=== PATIENT | female | born 1985 | race Caucasian/White ===

== ENCOUNTER 2016-10-12 02:07 | Inpatient (IN) | payer OTHER ==
[2016-10-12] MEDS ORDERED: Ondansetron 4 MG/2 ML SDV IVPUSH PRN ×2 (09:05→11:24)
[2016-10-12] MEDS ORDERED: Sodium Chloride 0.9% 10 ML Syringe FLUSH PRN (09:05)
[2016-10-12] MEDS ORDERED: Nalbuphine 20 MG/1 ML Amp IVPUSH PRN (09:05)
--- NOTE | 2016-10-12 09:08 | PCM.LDHP ---
L&D History of Present Illness - General Date of Service: 10/12/16 Admit Problem/Dx: Patient Status Order with Admit Dx/Problem 10/12/16 09:05 Patient Status [ADT] Routine Admission Diagnosis/Problem Admission Diagnosis/Problem Normal Source of Information: Patient History Limitations: Reports: No Limitations - History of Present Illness Introduction:: Patient is a 31-year-old 0-1 at 37-6/7 weeks who presents today for induction of labor for concerns of intrauterine growth restriction. Patient has a known bicornuate uterus and due to this history had serial ultrasounds in her . An ultrasound done on 08/31 at 32 weeks gestation showed baby to overall be at the 6th percentile. Follow-up ultrasound did show improvement and overall EFW, but continued bleeding had measurements. She's had weekly fluid and Doppler studies which of all been normal. Her has otherwise been uncomplicated. She is doing well today. Noting good movement. No other specific concerns. - Related Data Allergies/Adverse Reactions: Allergies Allergy/AdvReac Type Severity Reaction Status Date / Time clindamycin Allergy Hives Verified 08/31/16 17:44 Home Medications: Home Meds Ferrous Sulfate [Slow Fe] 142 mg PO DAILY 08/31/16 [History] Pnv with Ca,No.72/Iron/Fa [ Vitamin Plus Low Iron] 1 tab PO DAILY [History] Past Medical History [employer] History: Reports: , Spontaneous : 4 Para: 1 LMP (Approximate): - Past Surgical History Female Surgical History: Reports: D&C (x2) Musculoskeletal Surgical History: Reports: Other (See Below) Other Musculoskeletal Surgeries/Procedures:: Fracture surgery Social & Family History - Tobacco Use Smoking Status *Q: Never Smoker - Alcohol Use Alcohol Use History: No - Recreational Drug Use Recreational Drug Use: No H&P Review of Systems - Review of Systems: Review Of Systems: See Below General: Reports: No Symptoms Pulmonary: Reports: No Symptoms Cardiovascular: Reports: No Symptoms Gastrointestinal: Reports: No Symptoms Genitourinary: Reports: No Symptoms Musculoskeletal: Reports: No Symptoms Psychiatric: Reports: No Symptoms L&D Exam - Exam Exam: See Below - Vital Signs Weight: 79.061 kg - OB Specific Contraction Intensity: Irritability Movement: Active Heart Tones: Present Heart Tones per Min: 130 Heart Rate (FHR) Variability: Moderate (6-25 bmp) Presentation: Vertex - Joel Score Joel Score Cervix Position: Posterior Joel Score Consistency: Soft Joel Score Effacement: 31-50% Joel Score Dilation: 1-2 cm Joel Score Infant's Station: -2 Joel Score Total: 5 - Exam General: Alert, Oriented, Cooperative Lungs: Clear to Auscultation, Normal Respiratory Effort Cardiovascular: Regular Rate, Regular Rhythm GI/Abdominal Exam: Soft, Non-Tender Genitourinary: Normal external exam Extremities: Normal Inspection Skin: Warm, Dry, Intact - Patient Data Result Diagrams: 10/12/16 09:30 - Problem List (1) 38 weeks gestation of SNOMED Code(s): 35015125 ICD Code: Z3A.38 - 38 WEEKS GESTATION OF Status: Acute Current Visit: Yes (2) 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, antepartum SNOMED Code(s): 565962687 ICD Code: O34.03 - MATERNAL CARE FOR UNSP CONGEN MALFORM OF UTERUS, THIRD TRI ; Q51.3 - BICORNATE UTERUS Status: Acute Current Visit: Yes (3) IUGR (intrauterine growth restriction) SNOMED Code(s): 30120279 ICD Code: HPP3897 - Status: Acute Current Visit: Yes (4) Rubella non-immune status, antepartum SNOMED Code(s): 464665782 ICD Code: O99.89 - OTH DISEASES AND CONDITIONS COMPL PREG/CHLDBRTH; Z28.3 - UNDERIMMUNIZATION STATUS Status: Acute Current Visit: Yes Problem List Initiated/Reviewed/Updated: Yes Orders Last 24hrs: Active Orders 24 hr Category Date Time Status Patient Status [ADT] Routine ADT 10/12/16 09:05 Ordered Activity as Tolerated [RC] PFP Care 10/12/16 09:05 Ordered Communication Order [RC] ASDIRECTED Care 10/12/16 09:05 Ordered Heart Tones [RC] ASDIRECTED Care 10/12/16 09:06 Ordered Notify Provider [RC] PFP Care 10/12/16 09:05 Ordered Notify Provider [RC] PRN Care 10/12/16 09:05 Ordered Peripheral IV Care [RC] . DIRECTED Care 10/12/16 09:06 Ordered Vital Signs [RC] PER UNIT ROUTINE Care 10/12/16 09:05 Ordered CBC W/O DIFF,HEMOGRAM [HEME] Routine Lab 10/12/16 09:05 Ordered TYPE AND SCREEN [BBK] Routine Lab 10/12/16 09:05 Ordered Lactated Ringers [Ringers, Lactated] 1,000 ml Med 10/12/16 09:15 Ordered IV ASDIRECTED Nalbuphine [Nubain] Med 10/12/16 09:05 Ordered 10 mg IVPUSH Q2H PRN Ondansetron [Zofran] Med 10/12/16 09:05 Ordered 4 mg IVPUSH Q4H PRN Oxytocin/Lactated Ringers [Pitocin in LR 10 Units/1,000 Med 10/12/16 09:15 Ordered ML] 10 unit in 1,000 ml IV .CONTINUOUS Oxytocin/Lactated Ringers [Pitocin in LR 10 Units/1,000 Med 10/12/16 09:15 Ordered ML] 10 unit in 1,000 ml IV TITRATE Sodium Chloride 0.9% [Saline Flush] Med 10/12/16 09:05 Ordered 10 ml FLUSH ASDIRECTED PRN Electronic Heart Tones Ext w TOCO [WOMSER] Oth 10/12/16 09:05 Ordered Routine Electronic Heart Tones Internal [WOMSER] Per Unit Oth 10/12/16 09:05 Ordered Routine Peripheral IV Insertion Adult [OM.PC] Routine Oth 10/12/16 09:05 Ordered Resuscitation Status Routine Resus Stat 10/12/16 09:05 Ordered Assessment/Plan Comment:: 31-year-old at 37-6/7 weeks gestation who presents for induction of labor * CBC and type and screen * GBS negative, no need for antibiotics * Pitocin for induction with eventual AROM when able * Pain management per patient preference * Anticipate * MMR prior to discharge
[2016-10-12] MEDS ORDERED: Oxytocin/Lactated Ringers 10 UNIT/1,000 ML BAG IV SCH (09:15)
[2016-10-12] MEDS: Oxytocin/Lactated Ringers 10 UNIT/1,000 ML BAG IV SCH (10:06)
[2016-10-12] MEDS: Lactated Ringers 1,000 ML IV SCH ×5 (10:06→23:35)
[2016-10-12] MEDS ORDERED: fentaNYL 100 MCG/2 ML SDV EPIDUR PRN (11:24)
[2016-10-12] MEDS ORDERED: ePHEDrine 50 MG/ML SDV IVPUSH PRN (11:24)
--- NOTE | 2016-10-12 11:28 | PCM.PREANE ---
Preanesthetic Assessment - Anesthesia/Transfusion/Family Hx Anesthesia History: Prior Anesthesia Reaction Type of Anesthesia Reaction: Excessive Nausea/Vomiting Family History of Anesthesia Reaction: No Transfusion History: No Prior Transfusion(s) Intubation History: Unknown - Review of Systems General: No Symptoms Pulmonary: No Symptoms Cardiovascular: No Symptoms Gastrointestinal: No Symptoms (gerd), Constipation Neurological: No Symptoms Other: Reports: None, Easy Bruising - Physical Assessment NPO Status Date: 10/12/16 NPO Status Time: 11:15 Pulse: 81 O2 Sat by Pulse Oximetry: 99 Respiratory Rate: 18 Blood Pressure: 126/78 Temperature: 36.9 C Vital Signs: Last Vital Signs Temp 36.9 C 10/12/16 09:05 Pulse 81 10/12/16 09:05 Resp 18 10/12/16 09:05 BP 126/78 10/12/16 09:05 Pulse Ox Height: 1.64 m Weight: 83.489 kg ASA Class: 2 Mental Status: Alert & Oriented x3 Airway Class: Mallampati = 2 Dentition: Reports: Normal Dentition, Broken Tooth/Teeth (upper left), Caries Thyro-Mental Finger Breadths: 3 Mouth Opening Finger Breadths: 3 ROM/Head Extension: Full Lungs: Clear to Auscultation, Normal Respiratory Effort Cardiovascular: Regular Rate, Regular Rhythm, No Murmurs - Lab Values: Laboratory Last Values WBC 13.13 K/mm3 (3.98-10.04) H 10/12/16 09:30 RBC 3.69 M/mm3 (3.98-5.22) L 10/12/16 09:30 Hgb 11.6 gm/L (11.2-15.7) 10/12/16 09:30 Hct 34.9 % (34.1-44.9) 10/12/16 09:30 MCV 94.6 fl (79.4-94.8) 10/12/16 09:30 MCH 31.4 pg (25.6-32.2) 10/12/16 09:30 MCHC 33.2 g/dl (32.2-35.5) 10/12/16 09:30 RDW Std Deviation 45.6 fL (36.4-46.3) 10/12/16 09:30 Plt Count 201 K/mm3 (182-369) 10/12/16 09:30 MPV 10.0 fl (9.4-12.3) 10/12/16 09:30 Above labs reviewed and noted. 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: Other OB/BYN History: bicornuate uterus , d&c - Past Surgical History Female Surgical History: Reports: D&C - SUBSTANCE USE Smoking Status *Q: Never Smoker Second Hand Smoke Exposure: No Recreational Drug Use History: No - HOME MEDS Home Medications: Home Meds Ferrous Sulfate [Slow Fe] 142 mg PO DAILY 08/31/16 [History] Pnv with Ca,No.72/Iron/Fa [ Vitamin Plus Low Iron] 1 tab PO DAILY [History] - CURRENT (IN HOUSE) MEDS Current Meds: Current Medications Lactated Ringer's (Ringers, Lactated) 1,000 mls @ 40 mls/hr IV ASDIRECTED ARSH Last Admin: 10/12/16 10:06 Dose: 40 mls/hr Oxytocin/Lactated Ringer's (Pitocin In Lr 10 Units/1,000 Ml) 10 unit in 1,000 mls @ 500 mls/hr IV .CONTINUOUS ARSH Oxytocin/Lactated Ringer's (Pitocin In Lr 10 Units/1,000 Ml) 10 unit in 1,000 mls @ 12 mls/hr IV TITRATE ARSH; 2 MUNITS/MIN PRN Reason: Protocol Last Admin: 10/12/16 10:06 Dose: 2 munits/min, 12 mls/hr Nalbuphine HCl (Nubain) 10 mg IVPUSH Q2H PRN PRN Reason: Pain (moderate 4-6) Ondansetron HCl (Zofran) 4 mg IVPUSH Q4H PRN PRN Reason: Nausea/Vomiting Sodium Chloride (Saline Flush) 10 ml FLUSH ASDIRECTED PRN PRN Reason: Keep Vein Open
[2016-10-12] MEDS ORDERED: Bupivacaine/fentaNYL/NS 100 ML Bag EPIDUR SCH (11:30)
[2016-10-12] MEDS ORDERED: Bupivacaine 0.25% 10 ML SDV ONE (12:30)
--- NOTE | 2016-10-12 17:08 | PCM.PNLD ---
Labor Progress Note - VS & Meds Vital Signs: Last Vital Signs Temp 36.9 C 10/12/16 11:49 Pulse 81 10/12/16 11:49 Resp 18 10/12/16 11:49 BP 126/78 10/12/16 11:49 Pulse Ox 99 10/12/16 11:49 Active Medications: Current Medications Ephedrine Sulfate (Ephedrine Sulfate) 5 mg IVPUSH ASDIRECTED PRN PRN Reason: Hypotension Fentanyl (Sublimaze) 100 mcg EPIDUR Q3H PRN PRN Reason: Pain Fentanyl/Bupivacaine HCl (Fentanyl/Bupivacaine/Ns 2 Mcg-0.125% 100 Ml) 100 ml EPIDUR ASDIRECTED ARSH Lactated Ringer's (Ringers, Lactated) 1,000 mls @ 40 mls/hr IV ASDIRECTED ARSH Last Admin: 10/12/16 10:06 Dose: 40 mls/hr Oxytocin/Lactated Ringer's (Pitocin In Lr 10 Units/1,000 Ml) 10 unit in 1,000 mls @ 500 mls/hr IV .CONTINUOUS ARSH Oxytocin/Lactated Ringer's (Pitocin In Lr 10 Units/1,000 Ml) 10 unit in 1,000 mls @ 12 mls/hr IV TITRATE ARSH; 2 MUNITS/MIN PRN Reason: Protocol Last Titration: 10/12/16 16:04 Dose: 12 munits/min, 72 mls/hr Nalbuphine HCl (Nubain) 10 mg IVPUSH Q2H PRN PRN Reason: Pain (moderate 4-6) Ondansetron HCl (Zofran) 4 mg IVPUSH Q4H PRN PRN Reason: Nausea/Vomiting Ondansetron HCl (Zofran) 4 mg IVPUSH ONETIME PRN PRN Reason: Nausea/Vomiting Sodium Chloride (Saline Flush) 10 ml FLUSH ASDIRECTED PRN PRN Reason: Keep Vein Open - Uterine Contractions Uterine Monitoring Mode: External [place] Contraction Intensity: Moderate Uterine Resting Tone: Soft - Monitoring Monitor Mode: External Ultrasound Heart Rate (FHR) Baseline: 130 Heart Rate (FHR) Variability: Moderate (6-25 bmp) Accelerations: Present, 15x15 Decelerations: None Strip Review: Category I - Vaginal Exam Dilation (cm): 3 Effacement (Percent): 50 Station: -2 Cervical Position: Posterior - Labor Progress (Free Text) Labor Progress: Patinet doing well. On 12 of pitocin. Rates contractions as moderate. Attempt made at AROM. No gross loss of fluid, but thought to be small amount of clear fluid. Second attempt made with mostly blood noted from cervical exam check. Will continue with pitocin. Reassess in a few hours
--- NOTE | 2016-10-12 19:29 | PCM.PNLD ---
Labor Progress Note - VS & Meds Vital Signs: Last Vital Signs Temp 36.9 C 10/12/16 11:49 Pulse 81 10/12/16 11:49 Resp 18 10/12/16 11:49 BP 126/78 10/12/16 11:49 Pulse Ox 99 10/12/16 11:49 Active Medications: Current Medications Ephedrine Sulfate (Ephedrine Sulfate) 5 mg IVPUSH ASDIRECTED PRN PRN Reason: Hypotension Fentanyl (Sublimaze) 100 mcg EPIDUR Q3H PRN PRN Reason: Pain Last Admin: 10/12/16 18:35 Dose: 100 mcg Fentanyl/Bupivacaine HCl (Fentanyl/Bupivacaine/Ns 2 Mcg-0.125% 100 Ml) 100 ml EPIDUR ASDIRECTED ARSH Last Admin: 10/12/16 18:35 Dose: 100 ml Lactated Ringer's (Ringers, Lactated) 1,000 mls @ 40 mls/hr IV ASDIRECTED ARSH Last Admin: 10/12/16 18:37 Dose: 999 mls/hr Oxytocin/Lactated Ringer's (Pitocin In Lr 10 Units/1,000 Ml) 10 unit in 1,000 mls @ 500 mls/hr IV .CONTINUOUS ARSH Oxytocin/Lactated Ringer's (Pitocin In Lr 10 Units/1,000 Ml) 10 unit in 1,000 mls @ 12 mls/hr IV TITRATE ARSH; 2 MUNITS/MIN PRN Reason: Protocol Last Titration: 10/12/16 16:04 Dose: 12 munits/min, 72 mls/hr Nalbuphine HCl (Nubain) 10 mg IVPUSH Q2H PRN PRN Reason: Pain (moderate 4-6) Ondansetron HCl (Zofran) 4 mg IVPUSH Q4H PRN PRN Reason: Nausea/Vomiting Ondansetron HCl (Zofran) 4 mg IVPUSH ONETIME PRN PRN Reason: Nausea/Vomiting Sodium Chloride (Saline Flush) 10 ml FLUSH ASDIRECTED PRN PRN Reason: Keep Vein Open - Uterine Contractions Uterine Monitoring Mode: External [place] Contraction Intensity: Moderate to Strong Uterine Resting Tone: Soft - Monitoring Monitor Mode: External Ultrasound Heart Rate (FHR) Baseline: 125 Heart Rate (FHR) Variability: Moderate (6-25 bmp) Accelerations: Present, 15x15 Decelerations: None Strip Review: Category I - Vaginal Exam Dilation (cm): 3 Effacement (Percent): 50 Station: -2 Cervical Position: Posterior - Labor Progress (Free Text) Labor Progress: Patient doing well. Comfortable with epidural. Pitocin at 12. Obvious clear fluid now present. Continue present management
[2016-10-12] MEDS ORDERED: diphenhydrAMINE 50 MG/ML SDV IVPUSH PRN (20:34)
--- NOTE | 2016-10-12 20:37 | PCM.SN ---
- Free Text/Narrative Note: : Anesthesia notified of patient c/o breasts feeling numb. Upon arrival patient is sitting in high kasper's position with T4 level noted. Epidural infusion decreased from 10 to 7ml's/hr. Patient also c/o some pruitis with no rash or erythema noted. Benadryl PRN order placed. Patient educated to keep HOB up and to notify nurse with any changes.
[2016-10-13] MEDS: Oxytocin/Lactated Ringers 10 UNIT/1,000 ML BAG IV SCH (00:42)
[2016-10-13] MEDS ORDERED: Benzocaine/Menthol 20%-0.5% Spray 56 GM Canister TOP PRN (02:30)
[2016-10-13] MEDS ORDERED: Docusate Sodium 100 MG Cap PO PRN (02:30)
[2016-10-13] MEDS ORDERED: Lanolin 100% Cream 7 GM Tube TOP PRN (02:30)
[2016-10-13] MEDS ORDERED: Acetaminophen 325 MG Tab PO PRN (02:30)
[2016-10-13] MEDS ORDERED: Witch Hazel Medicated Pads 100/Jar TOP PRN (02:30)
--- NOTE | 2016-10-13 02:30 | PCM.DEL ---
L & D Note - General Info Date of Service: 10/13/16 - Delivery Note Labor: Induced by ARM, Induced by Oxytocin Delivery Outcome: Livebirth Infant Delivery Method: Spontaneous Vaginal Delivery Infant Delivery Mode: Spontaneous Presentation: Right Occiput Anterior (JOSETTE) Nuchal Cord: None Anesthesia Type: Epidural Amniotic Fluid Description: Clear Episiotomy Type: None Laceration: None Placenta: Intact, Spontaneous Cord: 3 Vessels Estimated Blood Loss: 400 Resuscitation Needed: Yes : Bulb Syringe, Stimulated, Warmed, [place] Used, Warmer Used Score 1 min: 8 Score 5 min: 9 Delivery Comments (Free Text/Narrative):: Patient found to be complete and began pushing with maternal pushing effort head delivered from an JOSETTE presentation. No nuchal cord present. With gentle downward traction the shoulders and body delivered. placed on maternal abdomen. Cord clamped and cut. Cord blood obtained. Placenta allowed time to separate and spontaneously expelled. Inspection of the perineum showed no lacerations. - Patient Data Vitals - Most Recent: Last Vital Signs Temp 36.9 C 10/12/16 11:49 Pulse 81 10/12/16 11:49 Resp 18 10/12/16 11:49 BP 126/78 10/12/16 11:49 Pulse Ox 99 10/12/16 11:49 Weight - Most Recent: 79.061 kg I&O - Last 24 Hours: Intake & Output 10/12/16 10/12/16 10/13/16 14:59 22:59 06:59 Intake Total 3620 1500 Balance 3620 1500 Lab Results Last 24 Hours: Laboratory Results - last 24 hr 10/12/16 10/12/16 Range/Units 09:30 09:30 WBC 13.13 H (3.98-10.04) K/mm3 RBC 3.69 L (3.98-5.22) M/mm3 Hgb 11.6 (11.2-15.7) gm/L Hct 34.9 (34.1-44.9) % MCV 94.6 (79.4-94.8) fl MCH 31.4 (25.6-32.2) pg MCHC 33.2 (32.2-35.5) g/dl RDW Std Deviation 45.6 (36.4-46.3) fL Plt Count 201 (182-369) K/mm3 MPV 10.0 (9.4-12.3) fl Blood Type A POSITIVE Gel Antibody Screen Negative Med Orders - Current: Current Medications Diphenhydramine HCl (Benadryl) 25 mg IVPUSH Q6H PRN PRN Reason: pruritis Last Admin: 10/12/16 21:53 Dose: 25 mg Ephedrine Sulfate (Ephedrine Sulfate) 5 mg IVPUSH ASDIRECTED PRN PRN Reason: Hypotension Fentanyl (Sublimaze) 100 mcg EPIDUR Q3H PRN PRN Reason: Pain Last Admin: 10/12/16 18:35 Dose: 100 mcg Fentanyl/Bupivacaine HCl (Fentanyl/Bupivacaine/Ns 2 Mcg-0.125% 100 Ml) 100 ml EPIDUR ASDIRECTED ARSH Last Admin: 10/12/16 18:35 Dose: 100 ml Lactated Ringer's (Ringers, Lactated) 1,000 mls @ 40 mls/hr IV ASDIRECTED ARSH Last Admin: 10/12/16 23:35 Dose: 999 mls/hr Oxytocin/Lactated Ringer's (Pitocin In Lr 10 Units/1,000 Ml) 10 unit in 1,000 mls @ 500 mls/hr IV .CONTINUOUS ARSH Oxytocin/Lactated Ringer's (Pitocin In Lr 10 Units/1,000 Ml) 10 unit in 1,000 mls @ 12 mls/hr IV TITRATE ARSH; 2 MUNITS/MIN PRN Reason: Protocol Last Admin: 10/13/16 00:42 Dose: 12 munits/min, 72 mls/hr Nalbuphine HCl (Nubain) 10 mg IVPUSH Q2H PRN PRN Reason: Pain (moderate 4-6) Ondansetron HCl (Zofran) 4 mg IVPUSH Q4H PRN PRN Reason: Nausea/Vomiting Ondansetron HCl (Zofran) 4 mg IVPUSH ONETIME PRN PRN Reason: Nausea/Vomiting Sodium Chloride (Saline Flush) 10 ml FLUSH ASDIRECTED PRN PRN Reason: Keep Vein Open - Problem List & Annotations (1) 38 weeks gestation of SNOMED Code(s): 79410098 Code(s): Z3A.38 - 38 WEEKS GESTATION OF Status: Acute Current Visit: Yes (2) 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, antepartum SNOMED Code(s): 196903562 Code(s): O34.03 - MATERNAL CARE FOR UNSP CONGEN MALFORM OF UTERUS, THIRD TRI ; Q51.3 - BICORNATE UTERUS Status: Acute Current Visit: Yes (3) IUGR (intrauterine growth restriction) SNOMED Code(s): 97736621 Code(s): RDH8348 - Status: Acute Current Visit: Yes (4) Rubella non-immune status, antepartum SNOMED Code(s): 229626804 Code(s): O99.89 - OTH DISEASES AND CONDITIONS COMPL PREG/CHLDBRTH; Z28.3 - UNDERIMMUNIZATION STATUS Status: Acute Current Visit: Yes (5) Vaginal delivery SNOMED Code(s): 691963779 Code(s): O80 - ENCOUNTER FOR FULL-TERM UNCOMPLICATED DELIVERY Status: Acute Current Visit: Yes - Problem List Review Problem List Initiated/Reviewed/Updated: Yes - My Orders Last 24 Hours: My Active Orders 10/12/16 09:05 Patient Status [ADT] Routine Activity as Tolerated [RC] PFP Communication Order [RC] ASDIRECTED Notify Provider [RC] PFP Notify Provider [RC] PRN Vital Signs [RC] PER UNIT ROUTINE Nalbuphine [Nubain] 10 mg IVPUSH Q2H PRN Ondansetron [Zofran] 4 mg IVPUSH Q4H PRN Sodium Chloride 0.9% [Saline Flush] 10 ml FLUSH ASDIRECTED PRN Electronic Heart Tones Ext w TOCO [WOMSER] Routine Electronic Heart Tones Internal [WOMSER] Per Unit Routine Peripheral IV Insertion Adult [OM.PC] Routine Resuscitation Status Routine 10/12/16 09:06 Heart Tones [RC] ASDIRECTED Peripheral IV Care [RC] . DIRECTED 10/12/16 09:15 Lactated Ringers [Ringers, Lactated] 1,000 ml IV ASDIRECTED Oxytocin/Lactated Ringers [Pitocin in LR 10 Units/1,000 ML] 10 unit in 1,000 ml IV .CONTINUOUS Oxytocin/Lactated Ringers [Pitocin in LR 10 Units/1,000 ML] 10 unit in 1,000 ml IV TITRATE 10/12/16 Breakfast Regular Diet [DIET] - Assessment Assessment:: 31-year-old G4 now P2022 PPD#0 from at 38 0/7 wks - Plan Plan:: * Routine cares * Encourage breast feeding * MMR prior to discharge
[2016-10-13] MEDS: Ibuprofen 600 MG Tab PO PRN ×3 (03:27→18:34)
[2016-10-13] MEDS ORDERED: Bupivacaine 0.25% 10 ML SDV ONE (12:30)
[2016-10-14] MEDS: Ibuprofen 600 MG Tab PO PRN ×3 (00:29→12:21)
[2016-10-14] MEDS ORDERED: Measles, Mumps & Rubella Vaccine 0.5 ML SDV SUBCUT ONE (09:48)
--- NOTE | 2016-10-14 11:12 | PCM.DCSUM1 ---
Discharge Summary - Hospital Course Free Text/Narrative:: [facility] LIVE L/D Delivery Note Patient Name: CLAUDIO COLE Date of : 85 Patient Status: Inpatient Attending Provider: Carlita Denney Date: 10/13/16 02:30 Initialization Date: 10/13/16 02:30 L & D Note - General Info Date of Service: 10/13/16 - Delivery Note Labor: Induced by ARM, Induced by Oxytocin Delivery Outcome: Livebirth Delivery Method: Spontaneous Vaginal Delivery Delivery Mode: Spontaneous Presentation: Right Occiput Anterior (JOSETTE) Nuchal Cord: None Anesthesia Type: Epidural Amniotic Fluid Description: Clear Episiotomy Type: None Laceration: None Placenta: Intact, Spontaneous Cord: 3 Vessels Estimated Blood Loss: 400 Resuscitation Needed: Yes : Bulb Syringe, Stimulated, Warmed, Thida Used, Warmer Used Score 1 min: 8 Score 5 min: 9 Delivery Comments (Free Text/Narrative):: Patient found to be complete and began pushing with maternal pushing effort head delivered from an JOSETTE presentation. No nuchal cord present. With gentle downward traction the shoulders and body delivered. placed on maternal abdomen. Cord clamped and cut. Cord blood obtained. Placenta allowed time to separate and spontaneously expelled. Inspection of the perineum showed no lacerations. - Patient Data Vitals - Most Recent: Last Vital Signs Temp 36.9 C 10/12/16 11:49 Pulse 81 10/12/16 11:49 Resp 18 10/12/16 11:49 BP 126/78 10/12/16 11:49 Pulse Ox 99 10/12/16 11:49 Weight - Most Recent: 79.061 kg I&O - Last 24 Hours: Intake & Output 10/12/16 10/12/16 10/13/16 14:59 22:59 06:59 Intake Total 3620 1500 Balance 3620 1500 Lab Results Last 24 Hours: Laboratory Results - last 24 hr 10/12/16 10/12/16 Range/Units 09:30 09:30 WBC 13.13 H (3.98-10.04) K/mm3 RBC 3.69 L (3.98-5.22) M/mm3 Hgb 11.6 (11.2-15.7) gm/L Hct 34.9 (34.1-44.9) % MCV 94.6 (79.4-94.8) fl MCH 31.4 (25.6-32.2) pg MCHC 33.2 (32.2-35.5) g/dl RDW Std Deviation 45.6 (36.4-46.3) fL Plt Count 201 (182-369) K/mm3 MPV 10.0 (9.4-12.3) fl Blood Type A POSITIVE Gel Antibody Screen Negative Med Orders - Current: Current Medications Diphenhydramine HCl (Benadryl) 25 mg IVPUSH Q6H PRN PRN Reason: pruritis Last Admin: 10/12/16 21:53 Dose: 25 mg Ephedrine Sulfate (Ephedrine Sulfate) 5 mg IVPUSH ASDIRECTED PRN PRN Reason: Hypotension Fentanyl (Sublimaze) 100 mcg EPIDUR Q3H PRN PRN Reason: Pain Last Admin: 10/12/16 18:35 Dose: 100 mcg Fentanyl/Bupivacaine HCl (Fentanyl/Bupivacaine/Ns 2 Mcg-0.125% 100 Ml) 100 ml EPIDUR ASDIRECTED ARSH Last Admin: 10/12/16 18:35 Dose: 100 ml Lactated Ringer's (Ringers, Lactated) 1,000 mls @ 40 mls/hr IV ASDIRECTED ARSH Last Admin: 10/12/16 23:35 Dose: 999 mls/hr Oxytocin/Lactated Ringer's (Pitocin In Lr 10 Units/1,000 Ml) 10 unit in 1,000 mls @ 500 mls/hr IV .CONTINUOUS ARSH Oxytocin/Lactated Ringer's (Pitocin In Lr 10 Units/1,000 Ml) 10 unit in 1,000 mls @ 12 mls/hr IV TITRATE ARSH; 2 MUNITS/MIN PRN Reason: Protocol Last Admin: 10/13/16 00:42 Dose: 12 munits/min, 72 mls/hr Nalbuphine HCl (Nubain) 10 mg IVPUSH Q2H PRN PRN Reason: Pain (moderate 4-6) Ondansetron HCl (Zofran) 4 mg IVPUSH Q4H PRN PRN Reason: Nausea/Vomiting Ondansetron HCl (Zofran) 4 mg IVPUSH ONETIME PRN PRN Reason: Nausea/Vomiting Sodium Chloride (Saline Flush) 10 ml FLUSH ASDIRECTED PRN PRN Reason: Keep Vein Open - Problem List & Annotations (1) 38 weeks gestation of SNOMED Code(s): 20263717 Code(s): Z3A.38 - 38 WEEKS GESTATION OF Status: Acute Current Visit: Yes (2) 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, antepartum SNOMED Code(s): 318672336 Code(s): O34.03 - MATERNAL CARE FOR UNSP CONGEN MALFORM OF UTERUS, THIRD TRI ; Q51.3 - BICORNATE UTERUS Status: Acute Current Visit: Yes (3) IUGR (intrauterine growth restriction) SNOMED Code(s): 49916308 Code(s): VSX8581 - Status: Acute Current Visit: Yes (4) Rubella non-immune status, antepartum SNOMED Code(s): 375572182 Code(s): O99.89 - OTH DISEASES AND CONDITIONS COMPL PREG/CHLDBRTH; Z28.3 - UNDERIMMUNIZATION STATUS Status: Acute Current Visit: Yes (5) Vaginal delivery SNOMED Code(s): 251396360 Code(s): O80 - ENCOUNTER FOR FULL-TERM UNCOMPLICATED DELIVERY Status: Acute Current Visit: Yes - Problem List Review Problem List Initiated/Reviewed/Updated: Yes - My Orders Last 24 Hours: My Active Orders 10/12/16 09:05 Patient Status [ADT] Routine Activity as Tolerated [RC] PFP Communication Order [RC] ASDIRECTED Notify Provider [RC] PFP Notify Provider [RC] PRN Vital Signs [RC] PER UNIT ROUTINE Nalbuphine [Nubain] 10 mg IVPUSH Q2H PRN Ondansetron [Zofran] 4 mg IVPUSH Q4H PRN Sodium Chloride 0.9% [Saline Flush] 10 ml FLUSH ASDIRECTED PRN Electronic Heart Tones Ext w TOCO [WOMSER] Routine Electronic Heart Tones Internal [WOMSER] Per Unit Routine Peripheral IV Insertion Adult [OM.PC] Routine Resuscitation Status Routine 10/12/16 09:06 Heart Tones [RC] ASDIRECTED Peripheral IV Care [RC] . DIRECTED 10/12/16 09:15 Lactated Ringers [Ringers, Lactated] 1,000 ml IV ASDIRECTED Oxytocin/Lactated Ringers [Pitocin in LR 10 Units/1,000 ML] 10 unit in 1,000 ml IV .CONTINUOUS Oxytocin/Lactated Ringers [Pitocin in LR 10 Units/1,000 ML] 10 unit in 1,000 ml IV TITRATE 10/12/16 Breakfast Regular Diet [DIET] - Assessment Assessment:: 31-year-old G4 now P2022 PPD#0 from at 38 0/7 wks - Plan Plan:: * Routine cares * Encourage breast feeding * MMR prior to discharge HPI Initial Comments: [facility] LIVE L/D Delivery Note Patient Name: CLAUDIO COLE Date of : 85 Patient Status: Inpatient Attending Provider: Carlita Denney Date: 10/13/16 02:30 Initialization Date: 10/13/16 02:30 L & D Note - General Info Date of Service: 10/13/16 - Delivery Note Labor: Induced by ARM, Induced by Oxytocin Delivery Outcome: Livebirth Infant Delivery Method: Spontaneous Vaginal Delivery Delivery Mode: Spontaneous Presentation: Right Occiput Anterior (JOSETTE) Nuchal Cord: None Anesthesia Type: Epidural Amniotic Fluid Description: Clear Episiotomy Type: None Laceration: None Placenta: Intact, Spontaneous Cord: 3 Vessels Estimated Blood Loss: 400 Resuscitation Needed: Yes [place]: Bulb Syringe, Stimulated, Warmed, Thida Used, Warmer Used Score 1 min: 8 Score 5 min: 9 Delivery Comments (Free Text/Narrative):: Patient found to be complete and began pushing with maternal pushing effort head delivered from an JOSETTE presentation. No nuchal cord present. With gentle downward traction the shoulders and body delivered. Infant placed on maternal abdomen. Cord clamped and cut. Cord blood obtained. Placenta allowed time to separate and spontaneously expelled. Inspection of the perineum showed no lacerations. - Patient Data Vitals - Most Recent: Last Vital Signs Temp 36.9 C 10/12/16 11:49 Pulse 81 10/12/16 11:49 Resp 18 10/12/16 11:49 BP 126/78 10/12/16 11:49 Pulse Ox 99 10/12/16 11:49 Weight - Most Recent: 79.061 kg I&O - Last 24 Hours: Intake & Output 10/12/16 10/12/16 10/13/16 14:59 22:59 06:59 Intake Total 3620 1500 Balance 3620 1500 Lab Results Last 24 Hours: Laboratory Results - last 24 hr 10/12/16 10/12/16 Range/Units 09:30 09:30 WBC 13.13 H (3.98-10.04) K/mm3 RBC 3.69 L (3.98-5.22) M/mm3 Hgb 11.6 (11.2-15.7) gm/L Hct 34.9 (34.1-44.9) % MCV 94.6 (79.4-94.8) fl MCH 31.4 (25.6-32.2) pg MCHC 33.2 (32.2-35.5) g/dl RDW Std Deviation 45.6 (36.4-46.3) fL Plt Count 201 (182-369) K/mm3 MPV 10.0 (9.4-12.3) fl Blood Type A POSITIVE Gel Antibody Screen Negative Med Orders - Current: Current Medications Diphenhydramine HCl (Benadryl) 25 mg IVPUSH Q6H PRN PRN Reason: pruritis Last Admin: 10/12/16 21:53 Dose: 25 mg Ephedrine Sulfate (Ephedrine Sulfate) 5 mg IVPUSH ASDIRECTED PRN PRN Reason: Hypotension Fentanyl (Sublimaze) 100 mcg EPIDUR Q3H PRN PRN Reason: Pain Last Admin: 10/12/16 18:35 Dose: 100 mcg Fentanyl/Bupivacaine HCl (Fentanyl/Bupivacaine/Ns 2 Mcg-0.125% 100 Ml) 100 ml EPIDUR ASDIRECTED ARSH Last Admin: 10/12/16 18:35 Dose: 100 ml Lactated Ringer's (Ringers, Lactated) 1,000 mls @ 40 mls/hr IV ASDIRECTED ARSH Last Admin: 10/12/16 23:35 Dose: 999 mls/hr Oxytocin/Lactated Ringer's (Pitocin In Lr 10 Units/1,000 Ml) 10 unit in 1,000 mls @ 500 mls/hr IV .CONTINUOUS ARSH Oxytocin/Lactated Ringer's (Pitocin In Lr 10 Units/1,000 Ml) 10 unit in 1,000 mls @ 12 mls/hr IV TITRATE ARSH; 2 MUNITS/MIN PRN Reason: Protocol Last Admin: 10/13/16 00:42 Dose: 12 munits/min, 72 mls/hr Nalbuphine HCl (Nubain) 10 mg IVPUSH Q2H PRN PRN Reason: Pain (moderate 4-6) Ondansetron HCl (Zofran) 4 mg IVPUSH Q4H PRN PRN Reason: Nausea/Vomiting Ondansetron HCl (Zofran) 4 mg IVPUSH ONETIME PRN PRN Reason: Nausea/Vomiting Sodium Chloride (Saline Flush) 10 ml FLUSH ASDIRECTED PRN PRN Reason: Keep Vein Open - Problem List & Annotations (1) 38 weeks gestation of SNOMED Code(s): 16695088 Code(s): Z3A.38 - 38 WEEKS GESTATION OF Status: Acute Current Visit: Yes (2) 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, antepartum SNOMED Code(s): 273708850 Code(s): O34.03 - MATERNAL CARE FOR UNSP CONGEN MALFORM OF UTERUS, THIRD TRI ; Q51.3 - BICORNATE UTERUS Status: Acute Current Visit: Yes (3) IUGR (intrauterine growth restriction) SNOMED Code(s): 22462953 Code(s): HXT6248 - Status: Acute Current Visit: Yes (4) Rubella non-immune status, antepartum SNOMED Code(s): 041649720 Code(s): O99.89 - OTH DISEASES AND CONDITIONS COMPL PREG/CHLDBRTH; Z28.3 - UNDERIMMUNIZATION STATUS Status: Acute Current Visit: Yes (5) Vaginal delivery SNOMED Code(s): 087672514 Code(s): O80 - ENCOUNTER FOR FULL-TERM UNCOMPLICATED DELIVERY Status: Acute Current Visit: Yes - Problem List Review Problem List Initiated/Reviewed/Updated: Yes - My Orders Last 24 Hours: My Active Orders 10/12/16 09:05 Patient Status [ADT] Routine Activity as Tolerated [RC] PFP Communication Order [RC] ASDIRECTED Notify Provider [RC] PFP Notify Provider [RC] PRN Vital Signs [RC] PER UNIT ROUTINE Nalbuphine [Nubain] 10 mg IVPUSH Q2H PRN Ondansetron [Zofran] 4 mg IVPUSH Q4H PRN Sodium Chloride 0.9% [Saline Flush] 10 ml FLUSH ASDIRECTED PRN Electronic Heart Tones Ext w TOCO [WOMSER] Routine Electronic Heart Tones Internal [WOMSER] Per Unit Routine Peripheral IV Insertion Adult [OM.PC] Routine Resuscitation Status Routine 10/12/16 09:06 Heart Tones [RC] ASDIRECTED Peripheral IV Care [RC] . DIRECTED 10/12/16 09:15 Lactated Ringers [Ringers, Lactated] 1,000 ml IV ASDIRECTED Oxytocin/Lactated Ringers [Pitocin in LR 10 Units/1,000 ML] 10 unit in 1,000 ml IV .CONTINUOUS Oxytocin/Lactated Ringers [Pitocin in LR 10 Units/1,000 ML] 10 unit in 1,000 ml IV TITRATE 10/12/16 Breakfast Regular Diet [DIET] - Assessment Assessment:: 31-year-old G4 now P2022 PPD#0 from at 38 0/7 wks - Plan Plan:: * Routine cares * Encourage breast feeding * MMR prior to discharge Brief History: [facility] LIVE . L/D Delivery Note. Patient Name: CLAUDIO COLE [facility] Record Number: [id number]. Date of : Patient Status: Inpatient. Attending Provider: Carlita Denney Number : [id number]. Date: 10/13/16 02:30Initialization Date: 10/13/16 02:30. L & D Note. - General Info. Date of Service: 10/13/16. - Delivery Note. Labor: Induced by ARM, Induced by Oxytocin. Delivery Outcome: Livebirth. Delivery Method: Spontaneous Vaginal Delivery. Infant Delivery Mode: Spontaneous. Presentation: Right Occiput Anterior (JOSETTE). Nuchal Cord: None. Anesthesia Type: Epidural. Amniotic Fluid Description: Clear. Episiotomy Type: None. Laceration: None. Placenta: Intact, Spontaneous. Cord : 3 Vessels. Estimated Blood Loss: 400. Resuscitation Needed: Yes. [place]: Bulb Syringe, Stimulated, Warmed, Thida Used, Warmer Used. Score 1 min : 8. Score 5 min: 9. Delivery Comments (Free Text/Narrative):: Patient found to be complete and began pushing with maternal pushing effort head delivered from an JOSETTE presentation. No nuchal cord present. With gentle downward traction the shoulders and body delivered. Infant placed on maternal abdomen. Cord clamped and cut. Cord blood obtained. Placenta allowed time to separate and spontaneously expelled. Inspection of the perineum showed no lacerations. - Patient Data. Vitals - Most Recent: Last Vital Signs. Temp 36.9 C 10/12/16 11:49. Pulse 81 10/12/16 11:49. Resp 18 10/12/16 11:49. BP 126/78 10/12/16 11:49. Pulse Ox 99 10/12/16 11:49. Weight - Most Recent: 79.061 kg. I&O - Last 24 Hours: Intake & Output. . 14:5922:5906:59. Intake [id number]. [id number]. Lab Results Last 24 Hours: Laboratory Results - last 24 hr. 10/13/1707Range/Units. 09:3009:30. WBC 13.13 H (3.98-10.04) K/mm3. RBC 3.69 L (3.98- 5.22) M/mm3. Hgb 11.6 (11.2-15.7) gm/L. Hct 34.9 (34.1-44.9) %. MCV 94.6 ( 79.4-94.8) fl. MCH 31.4 (25.6-32.2) pg. MCHC 33.2 (32.2-35.5) g/dl. RDW Std Deviation 45.6 (36.4-46.3) fL. Plt Count 201 (182-369) K/mm3. MPV 10.0 ( 9.4-12.3) fl. Blood Type A POSITIVE. Gel Antibody Screen Negative. Med Orders - Current: Current Medications. Diphenhydramine HCl (Benadryl) 25 mg IVPUSH Q6H PRN. PRN Reason: pruritis. Last Admin: 10/12/16 21:53 Dose: 25 mg. Ephedrine Sulfate (Ephedrine Sulfate) 5 mg IVPUSH ASDIRECTED PRN. PRN Reason: Hypotension. Fentanyl (Sublimaze) 100 mcg EPIDUR Q3H PRN. PRN Reason : Pain. Last Admin: 10/12/16 18:35 Dose: 100 mcg. Fentanyl/Bupivacaine HCl ( Fentanyl/Bupivacaine/Ns 2 Mcg-0.125% 100 Ml) 100 ml EPIDUR ASDIRECTED ARSH. Last Admin: 10/12/16 18:35 Dose: 100 ml. Lactated Ringer's (Ringers, Lactated ) 1,000 mls @ 40 mls/hr IV ASDIRECTED ARSH. Last Admin: 10/12/16 23:35 Dose: 999 mls/hr. Oxytocin/Lactated Ringer's (Pitocin In Lr 10 Units/1,000 Ml) 10 unit in 1,000 mls @ 500 mls/hr IV .CONTINUOUS ARSH. Oxytocin/Lactated Ringer's ( Pitocin In Lr 10 Units/1,000 Ml) 10 unit in 1,000 mls @ 12 mls/hr IV TITRATE ARSH; 2 MUNITS/MIN. PRN Reason: Protocol. Last Admin: 10/13/16 00:42 Dose: 12 munits/min, 72 mls/hr. Nalbuphine HCl (Nubain) 10 mg IVPUSH Q2H PRN. PRN Reason: Pain (moderate 4-6). Ondansetron HCl (Zofran) 4 mg IVPUSH Q4H PRN. PRN Reason: Nausea/Vomiting. Ondansetron HCl (Zofran) 4 mg IVPUSH ONETIME PRN. PRN Reason: Nausea/Vomiting. Sodium Chloride (Saline Flush) 10 ml FLUSH ASDIRECTED PRN. PRN Reason: Keep Vein Open. - Problem List & Annotations. (1 ) 38 weeks gestation of . SNOMED Code(s): 23992652. Code(s): Z3A.38 - 38 WEEKS GESTATION OF Status: Acute Current Visit: Yes. 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 SNOMED Code(s): 513023572. Code(s): O34.03 - MATERNAL CARE FOR UNSP CONGEN MALFORM OF UTERUS, THIRD TRI; Q51.3 - BICORNATE UTERUS Status: Acute Current Visit: Yes. (3) IUGR (intrauterine growth restriction). SNOMED Code(s): 05963215. Code(s): IPK3727 - Status: Acute Current Visit: Yes. (4) Rubella non- immune status, antepartum. SNOMED Code(s): 189220384. Code(s): O99.89 - OTH DISEASES AND CONDITIONS COMPL PREG/CHLDBRTH; Z28.3 - UNDERIMMUNIZATION STATUS Status: Acute Current Visit: Yes. (5) Vaginal delivery. SNOMED Code(s): 817551015. Code(s): O80 - ENCOUNTER FOR FULL-TERM UNCOMPLICATED DELIVERY Status: Acute Current Visit: Yes. - Problem List Review. Problem List Initiated/Reviewed/Updated: Yes. - My Orders. Last 24 Hours: My Active Orders. 10/12/16 09:05. Patient Status [ADT] Routine. Activity as Tolerated [ RC] PFP. Communication Order [RC] ASDIRECTED. Notify Provider [RC] PFP. Notify Provider [RC] PRN. Vital Signs [RC] PER UNIT ROUTINE. Nalbuphine [ Nubain] 10 mg IVPUSH Q2H PRN. Ondansetron [Zofran] 4 mg IVPUSH Q4H PRN. Sodium Chloride 0.9% [Saline Flush] 10 ml FLUSH ASDIRECTED PRN. Electronic Heart Tones Ext w TOCO [WOMSER] Routine. Electronic Heart Tones Internal [WOMSER] Per Unit Routine. Peripheral IV Insertion Adult [OM.PC] Routine. Resuscitation Status Routine. 10/12/16 09:06. Heart Tones [RC ] ASDIRECTED. Peripheral IV Care [RC] . DIRECTED. 10/12/16 09:15. Lactated Ringers [Ringers, Lactated] 1,000 ml IV ASDIRECTED. Oxytocin/Lactated Ringers [ Pitocin in LR 10 Units/1,000 ML] 10 unit in 1,000 ml IV .CONTINUOUS. Oxytocin/ Lactated Ringers [Pitocin in LR 10 Units/1,000 ML] 10 unit in 1,000 ml IV TITRATE. 10/12/16 Breakfast. Regular Diet [DIET]. - Assessment. Assessment: : 31-year-old G4 now P2022 PPD#0 from at 38 0/7 wks. - Plan. Plan:: . Routine cares. Encourage breast feeding. 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, antepartum SNOMED Code(s): 709497098 ICD Code: O34.03 - MATERNAL CARE FOR UNSP CONGEN MALFORM OF UTERUS, THIRD TRI ; Q51.3 - BICORNATE UTERUS Status: Acute Current Visit: Yes (3) IUGR (intrauterine growth restriction) SNOMED Code(s): 98571460 ICD Code: KYU4152 - Status: Acute Current Visit: Yes (4) Rubella non-immune status, antepartum SNOMED Code(s): 115231396 ICD Code: O99.89 - OTH DISEASES AND CONDITIONS COMPL PREG/CHLDBRTH; Z28.3 - UNDERIMMUNIZATION STATUS Status: Acute Current Visit: Yes (5) Vaginal delivery SNOMED Code(s): 274865901 ICD Code: O80 - ENCOUNTER FOR FULL-TERM UNCOMPLICATED DELIVERY Status: Acute Current Visit: Yes - Patient Summary/Data Complications: None Consults: None Hospital Course: Uneventful - Patient Instructions Diet: Regular Diet as Tolerated Driving: Do Not Drive (For 48 hours.) Showering/Bathing: May Shower Notify Provider of: Fever, Increased Pain, Swelling and Redness, Drainage, Nausea and/or Vomiting - Discharge Plan Home Medications: Home Meds Ferrous Sulfate [Slow Fe] 142 mg PO DAILY 08/31/16 [History] Pnv with Ca,No.72/Iron/Fa [ Vitamin Plus Low Iron] 1 tab PO DAILY [History] Acetaminophen [Tylenol] 650 mg PO Q4H PRN #0 tablet 10/14/16 [Rx] Benzocaine/Menthol [Dermoplast Pain Relief Vichy] 1 spray TOP ASDIRECTED PRN #0 canister 10/14/16 [Rx] Docusate Sodium [Colace] 100 mg PO BID PRN #0 cap 10/14/16 [Rx] Ibuprofen [IJD: Ibuprofen] 200 - 600 mg PO Q6H PRN #0 tablet 10/14/16 [Rx] Alice Kline [Tucks] 1 pad TOP ASDIRECTED PRN #0 pad 10/14/16 [Rx] Referrals: Carlita Denney MD [Primary Care Provider] - (6 weeks) - Discharge Summary/Plan Comment DC Time >30 min.: No - Patient Data Vitals - Most Recent: Last Vital Signs Temp 98.6 F 10/14/16 04:00 Pulse 64 10/14/16 04:00 Resp 16 10/14/16 04:00 BP 110/51 L 10/14/16 04:00 Pulse Ox 99 10/14/16 04:00 Weight - Most Recent: 174 lb 4.8 oz I&O - Last 24 hours: Intake & Output 10/13/16 10/14/16 10/14/16 22:59 06:59 14:59 Intake Total 0 0 Balance 0 0 Med Orders - Current: Current Medications Acetaminophen (Tylenol) 650 mg PO Q4H PRN PRN Reason: mild pain or fever Benzocaine/Menthol (Dermoplast Pain Relief V[place]) 0 gm TOP ASDIRECTED PRN PRN Reason: Perineal Comfort Measure Last Admin: 10/13/16 03:25 Dose: 1 canister Diphenhydramine HCl (Benadryl) 25 mg IVPUSH Q6H PRN PRN Reason: pruritis Last Admin: 10/12/16 21:53 Dose: 25 mg Docusate Sodium (Colace) 100 mg PO BID PRN PRN Reason: Constipation Emollient Ointment (Lansinoh Hpa) 0 gm TOP ASDIRECTED PRN PRN Reason: Sore Nipples Ephedrine Sulfate (Ephedrine Sulfate) 5 mg IVPUSH ASDIRECTED PRN PRN Reason: Hypotension Fentanyl (Sublimaze) 100 mcg EPIDUR Q3H PRN PRN Reason: Pain Last Admin: 10/12/16 18:35 Dose: 100 mcg Fentanyl/Bupivacaine HCl (Fentanyl/Bupivacaine/Ns 2 Mcg-0.125% 100 Ml) 100 ml EPIDUR ASDIRECTED ARSH Last Admin: 10/12/16 18:35 Dose: 100 ml Lactated Ringer's (Ringers, Lactated) 1,000 mls @ 40 mls/hr IV ASDIRECTED ARSH Last Infusion: 10/13/16 02:10 Dose: Infused Oxytocin/Lactated Ringer's (Pitocin In Lr 10 Units/1,000 Ml) 10 unit in 1,000 mls @ 500 mls/hr IV .CONTINUOUS ARSH Oxytocin/Lactated Ringer's (Pitocin In Lr 10 Units/1,000 Ml) 10 unit in 1,000 mls @ 12 mls/hr IV TITRATE ARSH; 2 MUNITS/MIN PRN Reason: Protocol Last Titration: 10/13/16 02:10 Dose: 500 munits/min, 3,000 mls/hr Ibuprofen (Motrin) 600 mg PO Q6H PRN PRN Reason: Mild pain or fever Last Admin: 10/14/16 06:30 Dose: 600 mg Nalbuphine HCl (Nubain) 10 mg IVPUSH Q2H PRN PRN Reason: Pain (moderate 4-6) Ondansetron HCl (Zofran) 4 mg IVPUSH Q4H PRN PRN Reason: Nausea/Vomiting Ondansetron HCl (Zofran) 4 mg IVPUSH ONETIME PRN PRN Reason: Nausea/Vomiting Sodium Chloride (Saline Flush) 10 ml FLUSH ASDIRECTED PRN PRN Reason: Keep Vein Open Witch Raisa (Tucks) 1 pad TOP ASDIRECTED PRN PRN Reason: Hemorrhoid pain Discontinued Medications Measles/Mumps/Rubella Vaccine Live (M-M-R Ii Vaccine) 0.5 ml SUBCUT .ONCE ONE Stop: 10/14/16 09:49 *Q Meaningful Use (DIS) - VTE *Q VTE Criteria *Q: - Stroke *Q Stroke Criteria *Q: - AMI *Q AMI Criteria *Q:
[2016-10-14 12:22] VITALS: BP 108/59
--- NOTE | 2016-10-15 06:07 | PCM48HPAN ---
Post Anesthesia Note - EVALUATION WITHIN 48HRS OF ANESTHETIC Vital Signs in Normal Range: Yes Patient Participated in Evaluation: Yes Respiratory Function Stable: Yes Airway Patent: Yes Cardiovascular Function Stable: Yes Hydration Status Stable: Yes Pain Control Satisfactory: Yes Nausea and Vomiting Control Satisfactory: Yes Mental Status Recovered: Yes
== END 2016-10-14 12:30 | disposition home or self-care (01) | DRG 775 ==
LOC: JD.OB 02:07 → INTOOBSV 08:50 → JD.OB 10-13 02:07 → OBSVTOIN 10-13 02:07
PROVIDERS: ADMIT Obstetrics & Gynecology; ATTEND Obstetrics & Gynecology
PROC: 10E0XZZ Delivery of Products of Conception, External Approach (ICD-10-PCS; principal; 2016-10-13)
PROC: 3E033VJ Introduction of Other Hormone into Peripheral Vein, Percutaneous Approach (ICD-10-PCS; 2016-10-13)
PROC: 10907ZC Drainage of Amniotic Fluid, Therapeutic from Products of Conception, Via Natural or Artificial Opening (ICD-10-PCS; 2016-10-13)
PROC: 00HU33Z Insertion of Infusion Device into Spinal Canal, Percutaneous Approach (ICD-10-PCS; 2016-10-13)
PROC: 3E0R3CZ (ICD-10-PCS; 2016-10-13)
PROC: 3E0234Z Introduction of Serum, Toxoid and Vaccine into Muscle, Percutaneous Approach (ICD-10-PCS; 2016-10-14)
DX: O36.5930 Maternal care for other known or suspected poor fetal growth, third trimester, not applicable or unspecified (principal); O34.03 Maternal care for unspecified congenital malformation of uterus, third trimester; Q51.3 Bicornate uterus; Z3A.38 38 weeks gestation of pregnancy; Z37.0 Single live birth; Z88.1 Allergy status to other antibiotic agents; Z23 Encounter for immunization
CPT/HCPCS: 01967; 36415; 85027; 86850; 86900; 86901; 90707; A9270-GY; J1200; J2590; J3010; J7120